=== PATIENT | female | born 1990 | race Asian ===

== ENCOUNTER 2017-08-16 15:42 | Emergency (ER) | payer OTHER ==
[~2017-08-16] VITALS: Ht 167.6 cm; Wt 69.0 kg
[2017-08-16 15:53] VITALS: Ht 167.6 cm; Wt 69.0 kg
[2017-08-16] MEDS ORDERED: ACETAMINOPHEN 325 MG TAB PO ONE (17:30)
[2017-08-16] MEDS ORDERED: ACET500C5 PO (18:14)
[2017-08-16 19:10] VITALS: BP 125/66; PULSE 62; RESP 16
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
== END 2017-08-16 19:13 | disposition home or self-care (01) ==
LOC: FTE 15:42
DX: R51 Headache (principal); R42 Dizziness and giddiness; V49.40XA Driver injured in collision with unspecified motor vehicles in traffic accident, initial encounter
CPT/HCPCS: Z7502; Z7610; 99283